=== PATIENT | female | born 1945 | race Caucasian/White ===

== ENCOUNTER 2016-08-17 20:09 | Emergency (ER) | payer MEDICARE ==
--- NOTE | ~2016-08-17 | ER ---
[facility] AGE[facility] 70 Y [address] ROOM: [place] [address] LOCATION: [facility] ADMIT DATE: 08/17/2016 ER/Outpatient Report DISCHARGE DATE: FAMILY PHYSICIAN: Fabian Coy MD ATTENDING PHYSICIAN: Urbano Sebastian TIME OF ARRIVAL: 2030 hours. TIME OF EXAM: 2034 hours. CHIEF COMPLAINT: Left eye pain. HISTORY OF PRESENT ILLNESS: The patient states that approximately 3 o'clock this afternoon developed pain behind the left eye, she said it was painful when she blinked, applied any pressure to the area, did not have any drainage, no vision changes. She states that she was driving here from [place], continued to drive, did not have any trouble, went to a dinner that she was scheduled to, but now tonight, she has some numbness of the left cheek area; so, she thought she should get it checked. ALLERGIES: SHE HAS AN ALLERGY TO ASPIRIN. CURRENT MEDICATIONS: Her current medications are on her chart and reviewed by me. PAST MEDICAL HISTORY: Hypertension. PAST SURGICAL HISTORY: Hysterectomy, cholecystectomy. SOCIAL HISTORY: She is here visiting until Sunday from [place]. Denies use of tobacco, drugs, or alcohol. REVIEW OF SYSTEMS: All negative other than those mentioned in the HPI. PHYSICAL EXAMINATION: VITAL SIGNS: She weighed 77.2 kg. Blood pressure was 214/114, pulse of 96, PATIENT'S NAME: NAFISA RAJAN [facility] AGE: 70 Y [address] ROOM: [place] [address] LOCATION: [facility] ADMIT DATE: 08/17/2016 ER/Outpatient Report DISCHARGE DATE: FAMILY PHYSICIAN: Fabian Coy MD ATTENDING PHYSICIAN: Urbano Sebastian respirations 16, temp of 97.5, and O2 sat was 96% on room air. GENERAL: She is awake, alert, and oriented x4. SKIN: [place], warm, and dry. RESPIRATIONS: Even and nonlabored. HEENT: Pupils are equal and reactive to light. Extraocular movement is intact. Funduscopic exam is grossly intact. No redness of the conjunctiva noted. No discharge from the eye is noted. No swelling or deformity of the left cheek area is noted. LUNGS: Sounds are clear throughout. HEART: Regular rate and rhythm. EMERGENCY DEPARTMENT COURSE: I did do CT of her head. Radiology reports no acute intracranial process. She does have sinusitis. The patient states she just finished taking antibiotics for sinus infection. She continues to have no pain, her blood pressure did come down to 187/80 and then 177/81. IMPRESSION: Left eye pain, left cheek tenderness. PLAN: Home, rest, fluids, continue her current medications. I did discuss with the patient with the radiologist seeing a sinus infection, if she develops a fever, vision changes, symptoms are persisting, she is to return to the ER, and follow up with her primary provider. She verbalized understanding. AUBREY DONALDSON APRN FOR [facility] OSORIO/john /[id number] d: 08/18/16 0302 t: 08/24/16 1823, OUTPATIENT REPORT
== END 2016-08-17 21:22 | disposition disaster alternative care site (69) ==
LOC: GMED 20:09
DX: H57.12 Ocular pain, left eye (principal); I10 Essential (primary) hypertension; Z90.710 Acquired absence of both cervix and uterus; Z90.49 Acquired absence of other specified parts of digestive tract; Z88.8 Allergy status to other drugs, medicaments and biological substances